=== PATIENT | female | born 1960 | race African-American/Black ===

== ENCOUNTER 2017-05-08 08:47 | Emergency (ER) | payer OTHER ==
[~2017-05-08] VITALS: Ht 162.6 cm; Wt 60.9 kg
[2017-05-08 08:55] VITALS: BP 137/77
--- NOTE | 2017-05-08 09:16 | NUR ---
PATIENT TO BED 6 AT THIS TIME.
--- NOTE | 2017-05-08 09:17 | NUR ---
56/F BIB SELF C/O RIGHT SHOULDER PAIN X 1 MONTH---PT RUBBED HEAT OINTMENT AND IT RELIEVED PAIN SHOULDER PAIN AGAIN X 3 DAYS AGO---APPLYING HEAT OINTMENT / MOTRIN HELPS RELIEVE PAIN MOMENTARILY PER PT DENIES INJURY, FULL ROM.
--- NOTE | 2017-05-08 09:33 | NUR ---
PT TAKEN TO X RAY,ACCOMPANIED BY BRICK CATCHER.
[2017-05-08] MEDS ORDERED: TRIAMCINOLONE 40 MG/ML 5ML VIAL IA ONE (10:00)
[2017-05-08] MEDS ORDERED: LIDOCAINE 1% 500 MG/50 ML VIAL INJ ONE (10:10)
--- NOTE | 2017-05-08 10:12 | NUR ---
DR SKAGGS ADMINISTERED XYLOCAINE 2ML WITH KENALOG 0.5 ML TO R SHOULDER. PT TOLERATED PROCEDURE WELL.
[2017-05-08 10:28] VITALS: BP 127/72
--- NOTE | 2017-05-08 10:28 | NUR ---
Patient discharged with v/s stable. Written and verbal after care instructions given and explained. Patient verbalized understanding. Ambulatory with steady gait. All questions addressed prior to discharge. Advised to follow up with PMD.
== END 2017-05-08 10:28 | disposition home or self-care (01) ==
LOC: MED 08:47
DX: M75.31 Calcific tendinitis of right shoulder (principal); R03.0 Elevated blood-pressure reading, without diagnosis of hypertension
CPT/HCPCS: 20552; 73030; 99284; J2001; J3301